=== PATIENT | female | born 1980 | race Caucasian/White ===

== ENCOUNTER 2017-05-23 17:08 | Emergency (ER) | END 2017-05-24 00:55 | disposition home or self-care (01) ==

== ENCOUNTER 2018-01-20 16:15 | Emergency (ER) | END 2018-01-20 19:18 | disposition home or self-care (01) ==

== ENCOUNTER 2018-04-11 21:12 | Emergency (ER) | payer OTHER ==
[~2018-04-11] VITALS: Wt 99.2 kg
[~2018-04-11 21:12] MED LIST: ACET500C5 PO; CEPH-443 PO; HYDR25TA6 PO; IBUP-1542 PO; MUPI22OI2 TOP
[2018-04-11] MEDS ORDERED: ONDANSETRON (ODT) 4 MG TAB ODT STA (21:53)
[2018-04-11] MEDS ORDERED: KETOROLAC 30 MG INJ IM STA (21:53)
[2018-04-11] MEDS ORDERED: BISM262O23 PO (22:56)
[2018-04-11] MEDS ORDERED: ONDA8TAB14 PO (22:56)
[2018-04-11] MEDS ORDERED: ACET500C5 PO (22:56)
--- NOTE | 2018-04-11 23:02 | ERD ---
ER Documentation Chief Complaint Chief Complaint VOMITING/ DIARRHEA X'S 2 DAYS HPI 37-year-old female presents with cough and vomiting diarrhea for last 2 days. She has no history of fevers, urinary complaints, abdominal pain. She denies sick contacts or foreign travel. She has pain in the upper back with coughing. ROS All systems reviewed and are negative except as per history of present illness. Medications Home Meds Active Scripts Bismuth Subsalicylate* (Pepto-Bismol*) 262 Mg/15 Ml Oral.susp, 15 ML PO Q3H PRN for DIARRHEA for 5 Days, ML Prov:MELANIE RETANA MD 04/11/18 Acetaminophen* (Tylophen*) 500 Mg Capsule, 1 CAP PO Q6H PRN for PAIN AND OR ELEVATED TEMP, #15 CAP Prov:MELANIE RETANA MD 04/11/18 Ondansetron (Ondansetron Odt) 8 Mg Tab.rapdis, 8 MG PO Q6H PRN for NAUSEA AND/OR VOMITING, #8 TAB Prov:MELANIE RETANA MD 04/11/18 Ibuprofen* (Motrin*) 600 Mg Tab, 600 MG PO Q6, #20 TAB Prov:MELANIE RETANA MD 01/20/18 Cephalexin* (Keflex*) 500 Mg Capsule, 500 MG PO TID for 7 Days, CAP Prov:CHINA BRADLEY PA-C 05/24/17 Acetaminophen* (Tylophen*) 500 Mg Capsule, 1 CAP PO Q6H PRN for PAIN AND OR ELEVATED TEMP, #20 CAP Prov:CHINA BRADLEY PA-C 05/24/17 Mupirocin* (Bactroban*) 2% -22 Gram Oint...g., 1 APPLIC TOP BID for 7 Days, EA Prov:CHINA BRADLEY-Sd 05/24/17 Reported Medications Hydrochlorothiazide* (Hydrochlorothiazide*) 25 Mg Tab, 25 MG PO DAILY, #30 TAB 07/01/15 Allergies Allergies: Coded Allergies: No Known Drug Allergy (Verified Allergy, Unknown, 07/01/15) PMhx/Soc History of Surgery: Yes (bowel resection, cholecystectomy) Anesthesia Reaction: No Hx Neurological Disorder: No Hx Respiratory Disorders: No Hx Cardiac Disorders: Yes (HTN) Hx Psychiatric Problems: No Hx Miscellaneous Medical Probl: Yes (diverticulitis) Hx Alcohol Use: No Hx Substance Use: No Hx Tobacco Use: No Smoking Status: Never smoker FmHx Family History: No diabetes, No coronary disease, No other Physical Exam Vitals Vital Signs Date Temp Pulse Resp B/P (MAP) Pulse Ox O2 O2 Flow FiO2 Time Delivery Rate 04/11/18 99.1 100 20 182/106 99 21:15 (131) Physical Exam Const: No acute distress Head: Atraumatic Eyes: Normal Conjunctiva ENT: Normal External Ears, Nose and Mouth. TMs and oropharynx normal. Neck: Full range of motion. No meningismus. Resp: Clear to auscultation bilaterally Cardio: Regular rate and rhythm, no murmurs Abd: Soft, non tender, non distended. Normal bowel sounds Skin: No petechiae or rashes Back: No midline or flank tenderness Ext: No cyanosis, or edema Neur: Awake and alert Psych: Normal Mood and Affect Results 24 hrs Laboratory Tests Test 04/11/18 22:05 04/11/18 22:17 POC Beta HCG, Qualitative NEGATIVE Bedside Urine pH (LAB) 6.5 Bedside Urine Protein (LAB) 1+ Bedside Urine Glucose (UA) Negative Bedside Urine Ketones (LAB) Negative Bedside Urine Blood 1+ Bedside Urine Nitrite (LAB) Negative Bedside Urine Leukocyte Esterase (L Negative Current Medications Medications Dose Sig/Chel Start Time Status Last (Trade) Ordered Route PRN Stop Time Admin Dose Reason Admin Ketorolac 30 mg ONCE STAT 04/11/18 DC 04/11/18 Tromethamine IM 21:53 04/11/18 22:23 (Toradol) 21:55 Ondansetron 8 mg ONCE STAT 04/11/18 DC 04/11/18 HCl (Zofran ODT 21:53 04/11/18 22:02 Odt) 21:55 Procedures/MDM HCG negative. Urine shows no significant acute abnormalities. Chest X-ray 1V Interpreted by me: Soft Tissue: No acute abnormalities Bones: No acute abnormalities Mediastinum/Cardiac Silhouette/Lungs: No acute abnormalities. Impression- normal 1 view chest x-ray Patient given Zofran 8 mg by mouth. Patient given Toradol 60 mg IM. Patient presents with vomiting diarrhea and URI symptoms. She likely has viral syndrome without findings to suggest pneumonia, surgical abdomen or abdominal pain or chest pain. The will treat with Zofran, Tylenol, Pepto-Bismol, primary care follow-up and return precautions. The patient was stable with no new complaints during the ER course. Clinically, there is no current evidence to suggest meningitis, sepsis, acute abdomen, pneumonia, stroke, acute coronary syndrome, pulmonary embolism, aortic dissection or any other emergent condition appearing to require further evaluation or hospitalization. Patient counseled regarding my diagnostic impression and care plan. Prior to discharge all questions answered. Pt agrees with treatment plan and understands strict return precautions. Pt is instructed to follow up with primary care provider within 24- 48 hours. Precautionary instructions provided including instructions to return to the ER if not improving or for any worsening or changing symptoms or concerns. Departure Diagnosis: Primary Impression: Cough Additional Impression: Vomiting and diarrhea Condition: Stable Patient Instructions: Vomiting And Diarrhea, Nonspecific (Adult) Referrals: (Family) Additional Instructions: X-ray normal. Examines normal hoy. Cheque otro vez con ledesma doctor primario en el proximo melvin or regresa para mas o nueva simptomas. Probablamente un virus que dura 2-4 melvin. cheque otro vez en el proximo ryan para mas simptomas- vomito, dolor, loree, problemas con respirando, o con ledesma doctor primario. Horita los examines dice no tiene appendicits o emferma mal, marzena es importante coma esta en el proximo ryan. chequ 8-12 horas par mas dolor, especialamente derecho y abajo vomito , fiebre, nueva simptomas. MELANIE RETANA MD Apr 11, 2018 23:01
[2018-04-11 23:08] VITALS: BP 156/102; PULSE 73; RESP 22
[2018-04-11] MEDS ORDERED: D-ME473S2 PO (23:09)
== END 2018-04-11 23:10 | disposition home or self-care (01) ==
LOC: FTE 21:12
DX: R05 Cough (principal); R11.10 Vomiting, unspecified; I10 Essential (primary) hypertension; R19.7 Diarrhea, unspecified
CPT/HCPCS: 71045; 81003; 81025; 96372; J1885; Z7502; Z7610